=== PATIENT | male | born 1985 | race Caucasian/White ===

== ENCOUNTER 2020-05-14 13:38 | Emergency (ER) | payer SELFPAY ==
[2020-05-14] MEDS ORDERED: Ondansetron ODT 4 MG TAB ONE (13:58)
[2020-05-14] MEDS ORDERED: Adacel (T-DAP) 0.5 ML SYRINGE ONE (14:03)
[2020-05-14] MEDS ORDERED: Lidocaine 1% (PF) 30 ML VIAL ONE (14:28)
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
== END 2020-05-14 14:56 ==
LOC: NAV ERS 13:38
DX: S01.312A Laceration without foreign body of left ear, initial encounter (principal); S20.229A Contusion of unspecified back wall of thorax, initial encounter; F41.9 Anxiety disorder, unspecified; F31.9 Bipolar disorder, unspecified; F98.8 Other specified behavioral and emotional disorders with onset usually occurring in childhood and adolescence; F90.9 Attention-deficit hyperactivity disorder, unspecified type; Y04.2XXA Assault by strike against or bumped into by another person, initial encounter
CPT/HCPCS: 12011; 72072; 90471; 90715; J2001; Q0162